=== PATIENT | female | born 1950 | race Caucasian/White ===

== ENCOUNTER → 2019-04-09 | Day surgery (SDC) | payer MEDICARE ==
[2019-04-08 12:30] VITALS: BMI 31.4
[~2019-04-09] MED LIST: Prevnar 13-Val Conj/PF 0.5 ML SYRINGE IM ONE; Sodium Bicarbonate 2.5 MEQ/5 ML VIAL ONE
--- NOTE | 2019-04-09 15:29 | ULT ---
Ultrasound-guided right and left thyroid lobe nodule fine-needle aspirate INDICATION: Suspicious nodules within the right and left thyroid gland. COMPARISON: Thyroid ultrasound performed at [facility] dated March 19. TECHNIQUE: Informed consent was obtained. Preprocedure ultrasound identified the suspicious solid nod ules within the right and left thyroid lobe. Site overlying the thyroid gland was prepped and draped in the usual sterile fashion. Buffered 1% lidocaine was administered to the overlying subcutan eous tissues. Under ultrasound guidance, 4 separate FNA samples were obtained of each nodules within the right and left thyroid lobe (8 FNA samples total). Pathology was on-site to obtain the spe cimen during the examination. Post procedure images demonstrated no significant intraparenchymal hematoma. The patient tolerated the procedure without difficulty. The procedure site was then cleanse d and bandage. FINDINGS: There is a 3.6 x 1.9 cm solid mixed echogenicity nodule within the mid to inferior pole of the right thyroid gland with some suspicious punctate internal calcifications. There is a 3.0 x 1.5 x 1.6 cm solid mixed echogenicity nodule within the mid to lower pole of the left thyroid gland. IMPRESSION: Successful ultrasound-guided right and left thyroid nodule fine-needle aspirate.
== END ==
LOC: ULT 12:11
PROVIDERS: ATTEND Specialist
PROC: 0G9G3ZX Drainage of Left Thyroid Gland Lobe, Percutaneous Approach, Diagnostic (ICD-10-PCS; principal; 2019-04-09)
PROC: 0G9H3ZX Drainage of Right Thyroid Gland Lobe, Percutaneous Approach, Diagnostic (ICD-10-PCS; 2019-04-09)
DX: E04.2 Nontoxic multinodular goiter (principal); I48.91 Unspecified atrial fibrillation; E78.5 Hyperlipidemia, unspecified; M85.80 Other specified disorders of bone density and structure, unspecified site; Z79.899 Other long term (current) drug therapy; Z88.2 Allergy status to sulfonamides; Z88.5 Allergy status to narcotic agent; Z88.8 Allergy status to other drugs, medicaments and biological substances; Z91.011 Allergy to milk products; Z90.49 Acquired absence of other specified parts of digestive tract
CPT/HCPCS: 60100; 76942; 88173

== ENCOUNTER 2021-10-20 06:10 | Day surgery (SDC) | payer MEDICARE, OTHER ==
[2021-10-17 12:19] LABS: Mean Corpuscular HGB CONC 34.1 g/dL (32.0-36.0); Mean Platelet Volume 9.2 fl (7.4-10.4); Platelet Count 210 10x3/uL (150-450); RBC Distribution Width 15.2 % (11.5-14.5); Red Blood Cell (RBC) Count 4.66 10x6/uL (3.90-5.03)
[2021-10-17 12:48] LABS: Anion Gap 15 mmol/L (10-20); BUN (Urea Nitrogen) 15 mg/dL (9.8-20.1); Calc. Creatinine Clearance 0 mL/min (70-130); Carbon Dioxide 27 mmol/L (23-31); Chloride 105 mmol/L (98-107); Estimated GFR 82; Glucose 103 mg/dL (80-115); Potassium 3.9 mmol/L (3.5-5.1); Sodium 143 mmol/L (136-145)
[2021-10-20 08:06] LABS: Eosinophils 1 % (0-10); Hemoglobin 13.1 g/dL (12.0-16.0); Lymphocytes 64 % (21-51); MDiff Complete? YES; Mean Corpuscular HGB CONC 33.4 g/dL (32.0-36.0); Mean Corpuscular Hemoglobin 30.4 pg (27.0-31.0); Mean Platelet Volume 7.1 fL (7.4-10.4); Monocytes 2 % (0-10); Neutrophil 15 % (42-75); Platelet Count 191 thou/uL (130-400); Platelet Morphology Comment Appears Adequate; Polychromasia SLIGHT = 2-3 cells (100X) (0-2/hpf); RBC Distribution Width 14.3 % (11.5-14.5); Reactive Lymphocytes 18 % (0-10); Red Blood Cell (RBC) Count 4.32 mill/uL (4.20-5.40); White Blood Cell (WBC) Count 17.6 thou/uL (4.8-10.8)
[2021-10-20] MEDS ORDERED: SUGAMMADEX SODIUM 200 MG/2 ML VIAL ONE (08:14)
[2021-10-20] MEDS ORDERED: HYDROmorphone 2 MG/ML VIAL ONE (08:14)
[2021-10-20] MEDS ORDERED: PROPOFOL 20 ML ONE (08:14)
[2021-10-20] MEDS ORDERED: EPINEPHrine 1 MG/ML AMP ONE (08:40)
[2021-10-20] MEDS ORDERED: Bupivacaine PF 0.5% 30 ML VIAL ONE (08:40)
[2021-10-20] MEDS ORDERED: CEFAZOLIN 2 GM VIAL ONE ×2 (08:45→13:55)
[2021-10-20] MEDS ORDERED: Sodium Chloride 0.9% 100 ML ONE ×2 (08:45→13:55)
[2021-10-20] MEDS ORDERED: Thrombin 5000 UNITS/5 ML VIAL ONE (10:55)
[2021-10-20] MEDS ORDERED: Ondansetron ODT 4 MG TAB ONE (13:11)
[2021-10-20] MEDS ORDERED: diphenhydrAMINE 50 MG/ML VIAL ONE (15:02)
== END 2021-10-20 16:16 | disposition home or self-care (01) ==
LOC: SDC 06:10
PROVIDERS: ATTEND Neurological Surgery
DX: Z01.812 Encounter for preprocedural laboratory examination (principal); M54.16 Radiculopathy, lumbar region; Z20.822 Contact with and (suspected) exposure to COVID-19
CPT/HCPCS: 76000; 80048; 85025; 85027; 87811; J0171; J0690; J1170; J1200; J2704; J3490; Q0162; S0020

== ENCOUNTER 2021-10-20 08:58 | Day surgery (SDC) | payer MEDICARE, OTHER ==
[2021-10-18 12:40] VITALS: BMI 30.3
[~2021-10-20 08:58] MED LIST changes: +Dexamethasone 20 MG/5 ML VIAL ONE; +Esmolol 100 MG/10 ML VIAL ONE; +Ketorolac Tromethamine 30 MG/ML VIAL ONE; +Lidocaine 1% PF 5 ML VIAL ONE; +Ondansetron PF 4 MG/2 ML Vial ONE; +PROPOFOL 200 MG/20 ML VIAL ONE; +Phenylephrine 10 MG/ML VIAL ONE; -Prevnar 13-Val Conj/PF 0.5 ML SYRINGE IM ONE; +Rocuronium Bromide 10 MG/ML (10ML VIAL) ONE; -Sodium Bicarbonate 2.5 MEQ/5 ML VIAL ONE; +ePHEDrine 50 MG/ML VIAL ONE
== END 2021-10-20 18:00 | disposition home or self-care (01) ==
LOC: SDC 08:58
PROVIDERS: ATTEND Neurological Surgery
PROC: 0SB20ZZ Excision of Lumbar Vertebral Disc, Open Approach (ICD-10-PCS; principal; 2021-10-20)
PROC: 01NB0ZZ Release Lumbar Nerve, Open Approach (ICD-10-PCS; 2021-10-20)
DX: M51.16 Intervertebral disc disorders with radiculopathy, lumbar region (principal); G93.0 Cerebral cysts; Z79.899 Other long term (current) drug therapy; Z88.2 Allergy status to sulfonamides; Z88.5 Allergy status to narcotic agent; Z88.8 Allergy status to other drugs, medicaments and biological substances; Z91.011 Allergy to milk products; Z90.49 Acquired absence of other specified parts of digestive tract
CPT/HCPCS: 63047; C1713; J1100; J1885; J2370; J2405; J2704; J3490

== ENCOUNTER 2022-05-18 13:42 | Outpatient (CLI) | payer MEDICARE, OTHER ==
[2022-05-18] MEDS ORDERED: Iopamidol-370 76% 500 ML 1 ML ONE (13:54)
== END 2022-05-18 13:43 | disposition home or self-care (01) ==
LOC: BICCT 13:42
PROVIDERS: ATTEND Family Medicine
DX: C91.10 Chronic lymphocytic leukemia of B-cell type not having achieved remission (principal); I77.1 Stricture of artery; R07.89 Other chest pain; I89.8 Other specified noninfective disorders of lymphatic vessels and lymph nodes; R91.1 Solitary pulmonary nodule
CPT/HCPCS: 71260; 82565; Q9967

== ENCOUNTER 2023-07-29 12:12 | Outpatient (CLI) | payer MEDICARE, OTHER | END 2023-07-29 12:13 | disposition home or self-care (01) | LOC: BICULT 12:12 | PROVIDERS: ATTEND Family Medicine | DX: E01.0 Iodine-deficiency related diffuse (endemic) goiter (principal); E04.2 Nontoxic multinodular goiter | CPT/HCPCS: 76536 ==